=== PATIENT | male | born 1980 | race Caucasian/White ===

== ENCOUNTER 2019-06-21 14:10 | Outpatient (CLI) | payer BC ==
--- NOTE | 2019-06-21 14:41 | RAD ---
2 views lumbar spine: 06/21/2019 COMPARISON: 01/09/2015 HISTORY: Low back pain FINDINGS: Lateral exam demonstrates normal vertebral body height and alignment. There is questionable minimal dextroscoliosis centered at the thoracolumbar junction. The lumbar pedicles are intact on frontal imaging. No acute osseous abnormality. IMPRESSION: No acute osseous abnormality.
== END 2019-06-21 14:11 | disposition home or self-care (01) ==
LOC: TBSIIMAG 14:10
PROVIDERS: ATTEND Neurological Surgery
DX: M54.5 Low back pain (principal)
CPT/HCPCS: 72100

== ENCOUNTER 2019-07-29 14:03 | Outpatient (CLI) | payer BC ==
[2019-07-29 15:36] LABS: Prothrombin Time 12.8 SEC (12.0-14.7)
[2019-07-29 15:37] LABS: PTT 26.9 SEC (22.9-36.1)
[2019-07-29 15:54] LABS: Anion Gap 17 mmol/L (10-20); BUN (Urea Nitrogen) 8 mg/dL (8.9-20.6); Calc. Creatinine Clearance 0 mL/min (70-130); Carbon Dioxide 27 mmol/L (22-29); Chloride 98 mmol/L (98-107); Estimated GFR-MDRD Greater than 90; Glucose 116 mg/dL (70-105); Potassium 3.2 mmol/L (3.5-5.1); Sodium 139 mmol/L (136-145)
[2019-07-29 15:55] LABS: Hemoglobin 16.2 g/dL (14.0-18.0); Mean Corpuscular Hemoglobin 31.3 pg (27.0-31.0); Mean Corpuscular Volume 87.1 fL (78.0-98.0); Mean Platelet Volume 8.9 fL (7.4-10.4); Platelet Count 215 thou/uL (130-400); Red Blood Cell (RBC) Count 5.16 mill/uL (4.70-6.10)
== END 2019-07-29 14:04 | disposition home or self-care (01) ==
LOC: LABBT 14:03
PROVIDERS: ATTEND Neurological Surgery
DX: Z01.812 Encounter for preprocedural laboratory examination (principal); M51.26 Other intervertebral disc displacement, lumbar region
CPT/HCPCS: 80048; 85027; 85610; 85730

== ENCOUNTER 2019-08-02 05:45 | Day surgery (SDC) | payer BC ==
--- NOTE | 2019-07-29 14:10 | HP ---
HISTORY OF PRESENT ILLNESS: This is a 39-year-old male, who reports to our office for evaluation of low back and left leg pain. The patient reports that he has had pain for years, however things have gotten significantly worse since March. The patient describes pain in the low back down to the left gluteal, posterior thigh, changes in sensation in the anterior left leg. His foot amaya and tingles. The patient states that both feet are numb. He has been using a cane for assistance for the last month. He is unable to stand for more than 5 minutes and he is unable to lie flat and he is very uncomfortable in almost any position. The patient has gotten injections with Dr. Samson and these have helped in the past, but no longer. He has been in physical therapy and takes pain medications, gabapentin and muscle relaxers. Often has some difficulty using his hands. Decreased seems worse lately, they hurt and has difficulty using buttons. REVIEW OF SYSTEMS: A 10-point review of systems is completed and is negative other than stated in the above HPI. PAST MEDICAL HISTORY: Alcohol and drug use, hyperlipidemia, chronic pain, diabetes, hypertension. PAST SURGICAL HISTORY: The patient denies surgical history. FAMILY HISTORY: Father is , diagnosed with hypertension and cancer. Mother is alive with diabetes and hypertension. SOCIAL HISTORY: The patient is a former smoker, states that he uses alcohol and drugs, he is sexually active. MEDICATIONS: 1. Gabapentin. 2. Hydrochlorothiazide. 3. Percocet. 4. Metformin. 5. Tizanidine. ALLERGIES: MORPHINE. PHYSICAL EXAMINATION: CONSTITUTIONAL: The patient is alert and oriented x3. Appears nontoxic. RESPIRATIONS: Normal work of breathing on room air. NECK: Soft and supple. No masses are noted. Range of motion is intact and nonpainful. NEUROLOGIC: Awake, alert, oriented x3. Memory, attention, fund of knowledge are normal. Cranial nerves grossly intact. Upper extremities 5/5 strength in deltoids, biceps, triceps, wrist extension, finger extension, 4/5 in finger intrinsics. Decreased sensation in right pinky finger. Reflexes symmetric. Lower extremities 5/5 bilateral strength in hip flexion, knee flexion, knee extension, plantar flexion. 4-/5 in dorsiflexion, EHL, left toe flexion. S1 left radiculopathy. Positive single leg raise. Left hip rotation normal bilaterally. Tender to palpate the lumbar spine, left greater than right SI joint tenderness. Deep tendon reflexes 2+ patellar bilaterally, 2+ Achilles bilaterally. Negative Babinski. No clonus. SENSORY: Decreased sensation in lateral lower leg and top of both feet. Gait and station, sit to stand slow, leans to the right when sitting. Ambulates with cane. IMAGING: MRI cervical spine. Some right-sided foraminal stenosis, C3-C4, C4-C5, herniated disk, T1 left. Lumbar MRI disk at L4-5, L5-S1, etc. ASSESSMENT AND PLAN: Dr. Mota has offered surgery, laminectomy at L4-L5 with a left-sided microdiskectomy. The patient states that he understands the risks of surgery and is willing to proceed. Job ID: [id number]
[2019-07-29 14:42] VITALS: BMI 33.5
[2019-08-02] MEDS ORDERED: Fentanyl 100 MCG/2 ML VIAL ONE ×3 (05:54→10:18)
[2019-08-02] MEDS ORDERED: Midazolam HCl 2 mg/2 ml Vial ONE (06:00)
[2019-08-02] MEDS ORDERED: Bupivacaine HCl 0.5%/Epinephrine 1:200,000/PF 30 ml Vial ONE (06:11)
[2019-08-02] MEDS ORDERED: Thrombin 5000 UNITS/5 ML VIAL ONE (06:12)
[2019-08-02] MEDS ORDERED: Sodium Chloride 0.9% 20 ML ONE (06:12)
[2019-08-02] MEDS ORDERED: Famotidine/PF 20 mg/2ml Vial ONE (06:33)
[2019-08-02] MEDS ORDERED: Scopolamine 1.5 mg/72 hour Patch ONE (06:34)
[2019-08-02] MEDS ORDERED: Ondansetron PF 4 MG/2 ML Vial ONE ×2 (06:34→12:49)
--- NOTE | 2019-08-02 11:21 | OP ---
DATE OF PROCEDURE: 08/02/2019 [facility] CHIEF: Imani Guevara PA-C PREOPERATIVE INDICATION: Treat pain and prevent neurological deterioration. PREOPERATIVE DIAGNOSES: Lumbar intervertebral disk herniation at L4-L5 and L5-S1 with left-sided L5 and S1 radiculopathies as well as spinal stenosis with neurogenic claudication. POSTOPERATIVE DIAGNOSES: Lumbar intervertebral disk herniation at L4-L5 and L5-S1 with left-sided L5 and S1 radiculopathies as well as spinal stenosis with neurogenic claudication. PROCEDURES PERFORMED: Decompressive laminectomy, medial facetectomy, foraminotomy, L4-L5, L5-S1, microdiskectomy in left L4-5, left L5-S1. PREMEDICATION: Ancef 2 g IV. DRAIN NUMBER: Zero. DRAIN TYPE: None. DESCRIPTION OF PROCEDURE: The patient was brought to the operating room. General endotracheal anesthesia was induced. The patient was positioned prone on the operating table with the chest and hips supported by gel-filled chest rolls. A lateral fluoro radiograph was used to plan our incision. The lumbar skin was sterilely prepped and draped. We opened with a 10 blade knife and controlled bleeding with bipolar and monopolar cautery. We used monopolar cautery to dissect through subcutaneous tissues to the thoracodorsal fascia. We incised the fascia in the midline and reflected the paraspinal muscles off the spinous process and lamina of L4, L5, and S1. A lateral fluoro radiograph confirmed the levels upon which we were operating. We then removed the spinous processes of L4, L5 and the superior portion of the sacrum and using Kerrison rongeurs to fashion the laminectomy. We used a high-speed drill to thin the superior portion of the S1 lamina. We performed medial facetectomies at L4-L5 and L5-S1 to decompress the lateral recesses. There was significant tightness on the left lateral recess at L4-L5 and L5-S1. The operating microscope was brought into the field. Under microscopic magnification and using microsurgical techniques, we continued our medial facetectomy at L4-L5 and L5-S1 on the left side. Eventually, we identified the L5 and S1 nerve roots and we performed foraminotomies at the exit points. Most of these roots were stretched over intervertebral disk protrusions. These disks were densely calcified. They must have herniated out years ago as the density was similar to that of bone around it. We gently retracted the S1 nerve root medially as best we could and we drilled out the lateral aspect of the intervertebral disk protrusion. Indeed, this was so densely calcified and had same strength and consistency of bone. A trough we created was adequate to decompress and release stretch on the S1 nerve root. A ball probe could pass through the lateral recess and out the foramina without impingement. We turned our attention to L4-L5. Here, large intervertebral disk protrusion was causing stenosis originally and stretched the S1 nerve root especially on the left side. There was some disk material in the axilla of the nerve root and a copious amount over the shoulder. This material in the axilla was removed by gently using a curette to push it away eventually from the nerve and then removed it with pituitary rongeurs. Over the shoulder of the nerve, we retracted the nerve medially and using curettes, we reduced the amount of protruding calcified disk. We drilled some of the disk away and then used pituitary rongeurs to remove some soft disks beneath it. This process was repeated numerous times until we felt the lateral aspect of the dura was no longer stretched. There was certainly no compression in the middle of the canal and we ensured that the right-sided nerve roots were decompressed as well. We irrigated copiously with bacitracin irrigation. We controlled bleeding with gentle bipolar cautery. We infused local anesthetic in the paraspinal muscles. We closed the wound in anatomical layers and we applied a sterile dressing. This was a clean case, no contamination. Job ID: [id number]
[2019-08-02] MEDS ORDERED: Rocuronium Bromide 10 MG/ML (10ML VIAL) ONE (12:49)
[2019-08-02] MEDS ORDERED: PROPOFOL 200 MG/20 ML VIAL ONE (12:49)
[2019-08-02] MEDS ORDERED: Lidocaine 1% PF 5 ML VIAL ONE (12:49)
[2019-08-02] MEDS ORDERED: Ketorolac Tromethamine 30 MG/ML VIAL ONE (12:49)
[2019-08-02] MEDS ORDERED: Succinylcholine Chloride 20 MG/ML 10 ml SYRINGE FS ONE (12:49)
[2019-08-02] MEDS ORDERED: Labetalol HCl 100 MG/20 ML VIAL ONE (12:49)
== END 2019-08-02 14:25 | disposition home or self-care (01) ==
LOC: SDC 05:45
PROVIDERS: ATTEND Neurological Surgery
PROC: 0SB40ZZ Excision of Lumbosacral Disc, Open Approach (ICD-10-PCS; principal; 2019-08-02)
PROC: 01NR0ZZ Release Sacral Nerve, Open Approach (ICD-10-PCS; principal; 2019-08-02)
PROC: 01NB0ZZ Release Lumbar Nerve, Open Approach (ICD-10-PCS; principal; 2019-08-02)
PROC: 0SB20ZZ Excision of Lumbar Vertebral Disc, Open Approach (ICD-10-PCS; principal; 2019-08-02)
DX: M51.26 Other intervertebral disc displacement, lumbar region (principal); M48.062 Spinal stenosis, lumbar region with neurogenic claudication; M51.17 Intervertebral disc disorders with radiculopathy, lumbosacral region; M48.07 Spinal stenosis, lumbosacral region; I10 Essential (primary) hypertension; E78.5 Hyperlipidemia, unspecified; E11.9 Type 2 diabetes mellitus without complications; G89.29 Other chronic pain; Z87.891 Personal history of nicotine dependence; Z79.84 Long term (current) use of oral hypoglycemic drugs; Z79.899 Other long term (current) drug therapy; Z88.5 Allergy status to narcotic agent
CPT/HCPCS: 36416; 76000; J0131; J0670; J0690; J1885; J2001; J2250; J2405; J2704; J3010; J3370; J3490; S0028

== ENCOUNTER 2025-04-25 19:57 | Inpatient (IN) | payer OTHER ==
[2025-04-25 21:54] VITALS: BMI 14.9
[2025-04-25] MEDS ORDERED: Acetaminophen 325 MG TAB PO PRN (22:37)
[2025-04-25] MEDS ORDERED: Calcium Carbonate 500 MG ChewTAB PO PRN (22:37)
[2025-04-25] MEDS ORDERED: Electrolyte Replacement Protocol 1 EACH FS SCH (22:45)
[2025-04-25] MEDS ORDERED: Glucagon 1 MG/ML KIT IM PRN (22:47)
[2025-04-25] MEDS ORDERED: Dextrose 50% Abboject 50 ML SYRINGE SLOW IVP PRN (22:47)
[2025-04-26 06:04] LABS: #Basophils 0.07 10x3/uL (0.0-0.2); #Eosinophils 0.05 10x3/uL (0.0-0.7); #Monocytes 1.46 10x3/uL (0.11-0.59); #Neutrophils 10.39 10x3/uL (1.40-6.50); %Basophils 0.5 % (0.0-1.0); %Eosinophils 0.4 % (0.0-10.0); %Lymphocytes 8.4 % (21.0-51.0); %Monocytes 11.1 % (0.0-10.0); %Neutrophils 78.8 % (42.0-75.0); Hematocrit 39.3 % (42.0-52.0); Hemoglobin 12.8 g/dL (14.0-18.0); Mean Corpuscular Hemoglobin 28.4 pg (27.0-31.0); Mean Corpuscular Volume 87.1 fL (78.0-98.0); Platelet Count 208 10x3/uL (130-400); Red Blood Cell (RBC) Count 4.51 mill/uL (4.70-6.10); White Blood Cell (WBC) Count 13.17 10x3/uL (4.8-10.8)
[2025-04-26 07:04] LABS: ALT (SGPT) 26 U/L (Less than 45); AST (SGOT) 123 U/L (11-34); Albumin 2.7 g/dL (3.1-4.5); Alkaline Phosphatase 475 U/L (40-110); Anion Gap 12 mmol/L (10-20); BUN (Urea Nitrogen) 6 mg/dL (8.9-20.6); Bilirubin, Total 1.4 mg/dL (0.3-1.2); Calc. Creatinine Clearance 105 mL/min (70-130); Calcium 8.6 mg/dL (7.8-10.44); Carbon Dioxide 26 mmol/L (22-29); Chloride 100 mmol/L (98-107); Globulin 3.7 g/dL (2.4-3.5); Glucose 225 mg/dL (70-105); Potassium 4.0 mmol/L (3.5-5.1); Sodium 134 mmol/L (136-145)
[2025-04-26] MEDS: metFORMIN 500 MG TAB PO SCH (09:55)
[2025-04-26] MEDS: Amoxicillin/Potassium Clav 875 MG TAB PO SCH ×2 (09:55→20:19)
[2025-04-26] MEDS: Megestrol Acetate 800 MG/20 ML UDCUP PO SCH (09:55)
[2025-04-26] MEDS: Cholecalciferol 1,000 UNITS (25 MCG) TAB PO SCH (20:19)
[2025-04-26] MEDS: Senokot S 8.6-50 MG TAB PO SCH (20:19)
[2025-04-26] MEDS: Folic Acid 1 MG TAB PO SCH (20:19)
[2025-04-26] MEDS: Cyanocobalamin (Vitamin B-12) 1,000 MCG TAB PO SCH (20:20)
[2025-04-26] MEDS: Cipro 250 MG TAB PO SCH (20:20)
[2025-04-26] MEDS: Multivit, Therapeutic 1 TAB PO SCH (20:20)
[2025-04-27 06:41] LABS: #Basophils 0.07 10x3/uL (0.0-0.2); #Eosinophils 0.12 10x3/uL (0.0-0.7); #Monocytes 1.65 10x3/uL (0.11-0.59); #Neutrophils 14.22 10x3/uL (1.40-6.50); %Basophils 0.4 % (0.0-1.0); %Eosinophils 0.7 % (0.0-10.0); %Lymphocytes 9.5 % (21.0-51.0); %Monocytes 9.2 % (0.0-10.0); %Neutrophils 79.3 % (42.0-75.0); Hematocrit 38.4 % (42.0-52.0); Hemoglobin 12.6 g/dL (14.0-18.0); Mean Corpuscular Hemoglobin 28.2 pg (27.0-31.0); Mean Corpuscular Volume 85.9 fL (78.0-98.0); Platelet Count 192 10x3/uL (130-400); Red Blood Cell (RBC) Count 4.47 mill/uL (4.70-6.10); White Blood Cell (WBC) Count 17.93 10x3/uL (4.8-10.8)
[2025-04-27 06:57] LABS: Anion Gap 16 mmol/L (10-20); BUN (Urea Nitrogen) 9 mg/dL (8.9-20.6); Calc. Creatinine Clearance 123 mL/min (70-130); Calcium 9.0 mg/dL (7.8-10.44); Carbon Dioxide 24 mmol/L (22-29); Chloride 99 mmol/L (98-107); Glucose 119 mg/dL (70-105); Magnesium 1.5 mg/dL (1.6-2.6); Potassium 3.8 mmol/L (3.5-5.1); Sodium 135 mmol/L (136-145)
[2025-04-27] MEDS: Magnesium 2 GM/50 ML(in water) 2 GM in Premix 1 BAG IVPB SCH (08:30)
[2025-04-27] MEDS: pyridOXINE 50 MG (B6) TAB PO SCH (08:30)
[2025-04-27] MEDS: Insulin Glargine 30 UNITS/0.3 ML VIAL SC SCH (08:30)
[2025-04-27] MEDS: Potassium Phosphate 30 MMOL in Sodium Chloride 0.9% 250 ML 250 ML IVPB SCH (10:05)
[2025-04-27] MEDS: HYDROcodone/Acetaminophen 5/325 mg Tablet PO PRN (14:19)
[2025-04-27 16:44] VITALS: BMI 14.9
[2025-04-28 05:27] LABS: #Basophils 0.05 10x3/uL (0.0-0.2); #Eosinophils 0.09 10x3/uL (0.0-0.7); #Monocytes 1.33 10x3/uL (0.11-0.59); #Neutrophils 11.18 10x3/uL (1.40-6.50); %Basophils 0.4 % (0.0-1.0); %Eosinophils 0.6 % (0.0-10.0); %Lymphocytes 10.4 % (21.0-51.0); %Monocytes 9.4 % (0.0-10.0); %Neutrophils 78.6 % (42.0-75.0); Hematocrit 35.0 % (42.0-52.0); Hemoglobin 11.4 g/dL (14.0-18.0); Mean Corpuscular Hemoglobin 28.4 pg (27.0-31.0); Mean Corpuscular Volume 87.3 fL (78.0-98.0); Platelet Count 234 10x3/uL (130-400); Red Blood Cell (RBC) Count 4.01 mill/uL (4.70-6.10); White Blood Cell (WBC) Count 14.20 10x3/uL (4.8-10.8)
[2025-04-28 05:50] LABS: Anion Gap 12 mmol/L (10-20); BUN (Urea Nitrogen) 12 mg/dL (8.9-20.6); Calc. Creatinine Clearance 112 mL/min (70-130); Calcium 8.3 mg/dL (7.8-10.44); Carbon Dioxide 27 mmol/L (22-29); Chloride 100 mmol/L (98-107); Glucose 146 mg/dL (70-105); Magnesium 1.8 mg/dL (1.6-2.6); Potassium 3.8 mmol/L (3.5-5.1); Sodium 135 mmol/L (136-145)
[2025-04-28] MEDS: Magnesium 2 GM/50 ML(in water) 2 GM in Premix 1 BAG IVPB SCH (08:37)
[2025-04-28] MEDS: OLANZapine 5 MG TAB PO SCH (08:38)
[2025-04-28] MEDS: Mirtazapine 15 MG TAB PO SCH (20:23)
[2025-04-30] MEDS: Ondansetron PF 4 MG/2 ML Vial IVP PRN (10:12)
[2025-04-30] MEDS: Melatonin 3 MG TAB PO PRN (21:24)
[2025-05-01 06:03] LABS: #Basophils 0.08 10x3/uL (0.0-0.2); #Eosinophils 0.11 10x3/uL (0.0-0.7); #Monocytes 2.30 10x3/uL (0.11-0.59); #Neutrophils 12.99 10x3/uL (1.40-6.50); %Basophils 0.5 % (0.0-1.0); %Eosinophils 0.6 % (0.0-10.0); %Lymphocytes 10.3 % (21.0-51.0); %Monocytes 13.2 % (0.0-10.0); %Neutrophils 74.9 % (42.0-75.0); Hematocrit 37.5 % (42.0-52.0); Hemoglobin 12.1 g/dL (14.0-18.0); Mean Corpuscular Hemoglobin 28.0 pg (27.0-31.0); Mean Corpuscular Volume 86.8 fL (78.0-98.0); Platelet Count 243 10x3/uL (130-400); Red Blood Cell (RBC) Count 4.32 mill/uL (4.70-6.10); White Blood Cell (WBC) Count 17.36 10x3/uL (4.8-10.8)
[2025-05-01 06:17] LABS: Anion Gap 14 mmol/L (10-20); BUN (Urea Nitrogen) 14 mg/dL (8.9-20.6); Calc. Creatinine Clearance 131 mL/min (70-130); Calcium 8.9 mg/dL (7.8-10.44); Carbon Dioxide 28 mmol/L (22-29); Chloride 99 mmol/L (98-107); Glucose 55 mg/dL (70-105); Potassium 3.8 mmol/L (3.5-5.1); Sodium 137 mmol/L (136-145)
[2025-05-02] MEDS: Ketorolac Tromethamine 30 MG (1 mL) VIAL IVP SCH (05:09)
[2025-05-02 05:52] LABS: #Basophils 0.07 10x3/uL (0.0-0.2); #Eosinophils 0.21 10x3/uL (0.0-0.7); #Monocytes 2.38 10x3/uL (0.11-0.59); #Neutrophils 10.46 10x3/uL (1.40-6.50); %Basophils 0.5 % (0.0-1.0); %Eosinophils 1.4 % (0.0-10.0); %Lymphocytes 11.3 % (21.0-51.0); %Monocytes 15.9 % (0.0-10.0); %Neutrophils 69.9 % (42.0-75.0); Hematocrit 39.5 % (42.0-52.0); Hemoglobin 12.9 g/dL (14.0-18.0); Mean Corpuscular Hemoglobin 27.6 pg (27.0-31.0); Mean Corpuscular Volume 84.6 fL (78.0-98.0); Platelet Count 285 10x3/uL (130-400); Red Blood Cell (RBC) Count 4.67 mill/uL (4.70-6.10); White Blood Cell (WBC) Count 14.96 10x3/uL (4.8-10.8)
[2025-05-02 06:05] LABS: Anion Gap 17 mmol/L (10-20); BUN (Urea Nitrogen) 12 mg/dL (8.9-20.6); Calc. Creatinine Clearance 123 mL/min (70-130); Calcium 9.0 mg/dL (7.8-10.44); Carbon Dioxide 26 mmol/L (22-29); Chloride 98 mmol/L (98-107); Glucose 92 mg/dL (70-105); Potassium 4.0 mmol/L (3.5-5.1); Sodium 137 mmol/L (136-145)
[2025-05-02] MEDS: Senokot S 8.6-50 MG TAB PO SCH (09:52)
[2025-05-02] MEDS: HYDROcodone/Acetaminophen 5/325 mg Tablet PO SCH (19:58)
[2025-05-03] MEDS ORDERED: Iopamidol-370 76% 500 ML MDV (1 ML CHARGE) ONE (10:07)
[2025-05-03] MEDS: Bisacodyl 10 MG SUPP PR SCH (12:03)
[2025-05-03] MEDS: Senokot S 8.6-50 MG TAB PO SCH (21:19)
[2025-05-04] MEDS: LevoFLOXacin 750 mg/D5W 750 MG in Premix 1 BAG IVPB SCH (11:24)
[2025-05-05 08:47] LABS: Hematocrit 35.1 % (42.0-52.0); Hemoglobin 11.1 g/dL (14.0-18.0); Mean Corpuscular Hemoglobin 27.8 pg (27.0-31.0); Mean Corpuscular Volume 87.8 fL (78.0-98.0); Platelet Count 442 10x3/uL (130-400); Red Blood Cell (RBC) Count 4.00 mill/uL (4.70-6.10); White Blood Cell (WBC) Count 16.34 10x3/uL (4.8-10.8)
[2025-05-05 09:01] LABS: Anion Gap 13 mmol/L (10-20); BUN (Urea Nitrogen) 12 mg/dL (8.9-20.6); Calc. Creatinine Clearance 131 mL/min (70-130); Calcium 8.3 mg/dL (7.8-10.44); Carbon Dioxide 31 mmol/L (22-29); Chloride 99 mmol/L (98-107); Glucose 86 mg/dL (70-105); Potassium 3.5 mmol/L (3.5-5.1); Sodium 139 mmol/L (136-145)
[2025-05-05 10:16] LABS: Giant Platelets 1.9 % (0-5); Platelet Adequacy Comment Platelets Normal; Polychromasia SLIGHT = 2-3 cells HPF (0-2); Smudge Cells 1.0 %; Target Cells MODERATE= 6-15 cells HPF (0-1)
[2025-05-06 05:44] LABS: Anion Gap 15 mmol/L (10-20); BUN (Urea Nitrogen) 12 mg/dL (8.9-20.6); Calc. Creatinine Clearance 133 mL/min (70-130); Calcium 8.4 mg/dL (7.8-10.44); Carbon Dioxide 26 mmol/L (22-29); Chloride 99 mmol/L (98-107); Glucose 234 mg/dL (70-105); Potassium 4.2 mmol/L (3.5-5.1); Sodium 136 mmol/L (136-145)
[2025-05-06 06:01] LABS: #Basophils 0.15 10x3/uL (0.0-0.2); #Eosinophils 0.28 10x3/uL (0.0-0.7); #Monocytes 1.97 10x3/uL (0.11-0.59); #Neutrophils 14.83 10x3/uL (1.40-6.50); %Basophils 0.7 % (0.0-1.0); %Eosinophils 1.4 % (0.0-10.0); %Lymphocytes 11.1 % (21.0-51.0); %Monocytes 9.7 % (0.0-10.0); %Neutrophils 72.7 % (42.0-75.0); Hematocrit 36.9 % (42.0-52.0); Hemoglobin 11.9 g/dL (14.0-18.0); Mean Corpuscular Hemoglobin 27.5 pg (27.0-31.0); Mean Corpuscular Volume 85.4 fL (78.0-98.0); Platelet Count 405 10x3/uL (130-400); Red Blood Cell (RBC) Count 4.32 mill/uL (4.70-6.10); White Blood Cell (WBC) Count 20.39 10x3/uL (4.8-10.8)
[2025-05-06 07:56] VITALS: BP 107/65; TEMP 97.5
[2025-05-06] MEDS: Mag-Al Plus 1200/1200/120 MG (30 mL) UDCUP PO PRN (10:02)
== END 2025-05-06 15:08 | disposition home or self-care (01) | DRG 435 ==
LOC: T4-B 21:13
PROVIDERS: ADMIT Student in an Organized Health Care Education/Training Program; ATTEND Internal Medicine
DX: C25.9 Malignant neoplasm of pancreas, unspecified (principal); E43 Unspecified severe protein-calorie malnutrition; A52.16 Charcot's arthropathy (tabetic); R44.0 Auditory hallucinations; Z68.1 Body mass index [BMI] 19.9 or less, adult; C78.7 Secondary malignant neoplasm of liver and intrahepatic bile duct; E88.A Wasting disease (syndrome) due to underlying condition; Z51.5 Encounter for palliative care; E11.9 Type 2 diabetes mellitus without complications; F15.10 Other stimulant abuse, uncomplicated; E11.621 Type 2 diabetes mellitus with foot ulcer; L97.509 Non-pressure chronic ulcer of other part of unspecified foot with unspecified severity; E87.8 Other disorders of electrolyte and fluid balance, not elsewhere classified; D3A.8 Other benign neuroendocrine tumors; F12.10 Cannabis abuse, uncomplicated; D72.829 Elevated white blood cell count, unspecified; K59.00 Constipation, unspecified; Z79.899 Other long term (current) drug therapy
CPT/HCPCS: 36415; 36416; 74177; 80048; 80053; 83735; 84100; 85025; 97139; J1815; J1885; J1956; J2405; J3475; J7050; J7120; Q0162; Q9967

== ENCOUNTER 2025-06-16 12:59 | Outpatient (CLI) | payer MEDICAID, SELFPAY ==
[2025-06-16] MEDS ORDERED: Iopamidol 370 76% 100 ML VIAL ONE (15:31)
== END 2025-06-16 13:00 | disposition home or self-care (01) ==
LOC: CT 12:59
PROVIDERS: ATTEND Internal Medicine
DX: C25.3 Malignant neoplasm of pancreatic duct (principal); C78.7 Secondary malignant neoplasm of liver and intrahepatic bile duct; R91.8 Other nonspecific abnormal finding of lung field; K86.89 Other specified diseases of pancreas
CPT/HCPCS: 71260; Q9967

== ENCOUNTER 2025-07-06 03:03 | Inpatient (IN) | payer MEDICAID ==
[2025-07-06 05:03] VITALS: BMI 14.8
[2025-07-06] MEDS ORDERED: Ondansetron PF 4 MG/2 ML Vial IVP PRN (06:16)
[2025-07-06] MEDS ORDERED: Acetaminophen 325 MG TAB PO PRN (06:16)
[2025-07-06] MEDS ORDERED: Dextrose 50% Abboject 50 ML SYRINGE SLOW IVP PRN (06:18)
[2025-07-06] MEDS ORDERED: Glucagon 1 MG/ML KIT IM PRN (06:18)
[2025-07-06] MEDS: Albumin 25% 25 GM (100 mL) BOT IVPB SCH (06:31)
[2025-07-06 07:34] LABS: ALT (SGPT) 31 U/L (Less than 45); AST (SGOT) 191 U/L (11-34); Albumin 2.6 g/dL (3.1-4.5); Alkaline Phosphatase 976 U/L (40-110); Anion Gap 10 mmol/L (10-20); BUN (Urea Nitrogen) 5 mg/dL (8.9-20.6); Bilirubin, Total 0.5 mg/dL (0.3-1.2); Calc. Creatinine Clearance 173 mL/min (70-130); Calcium 8.2 mg/dL (7.8-10.44); Carbon Dioxide 29 mmol/L (22-29); Chloride 102 mmol/L (98-107); Globulin 3.0 g/dL (2.4-3.5); Glucose 65 mg/dL (70-105); Magnesium 1.6 mg/dL (1.6-2.6); Potassium 3.2 mmol/L (3.5-5.1); Sodium 138 mmol/L (136-145)
[2025-07-06 08:20] LABS: Anion Gap 10 mmol/L (10-20); BUN (Urea Nitrogen) 5 mg/dL (8.9-20.6); Calc. Creatinine Clearance 190 mL/min (70-130); Calcium 8.4 mg/dL (7.8-10.44); Carbon Dioxide 30 mmol/L (22-29); Chloride 102 mmol/L (98-107); Glucose 64 mg/dL (70-105); Potassium 3.1 mmol/L (3.5-5.1); Sodium 139 mmol/L (136-145)
[2025-07-06 09:17] LABS: Hematocrit 30.1 % (42.0-52.0); Hemoglobin 9.3 g/dL (14.0-18.0); Mean Corpuscular Hemoglobin 28.8 pg (27.0-31.0); Mean Corpuscular Volume 93.2 fL (78.0-98.0); Platelet Count 172 10x3/uL (130-400); Red Blood Cell (RBC) Count 3.23 mill/uL (4.70-6.10); White Blood Cell (WBC) Count 34.68 10x3/uL (4.8-10.8)
[2025-07-06 09:29] LABS: Cocaine Metabolite Screen Negative (Negative); THC/Cannabinoid Screen Negative (Negative); Tricyclic Screen Negative (Negative)
[2025-07-06 09:50] LABS: Anisocytosis SLIGHT = 6-15 cells HPF (0-5); Platelet Adequacy Comment Platelets Normal; Polychromasia SLIGHT = 2-3 cells HPF (0-2); Smudge Cells 1.0 %; Toxic Granulation SLIGHT
[2025-07-06] MEDS ORDERED: Iopamidol 370 76% 100 ML VIAL ONE (13:30)
[2025-07-07 04:12] LABS: ALT (SGPT) 28 U/L (Less than 45); AST (SGOT) 126 U/L (11-34); Albumin 2.9 g/dL (3.1-4.5); Alkaline Phosphatase 965 U/L (40-110); Anion Gap 12 mmol/L (10-20); BUN (Urea Nitrogen) 4 mg/dL (8.9-20.6); Bilirubin, Total 0.9 mg/dL (0.3-1.2); Calc. Creatinine Clearance 184 mL/min (70-130); Calcium 8.4 mg/dL (7.8-10.44); Carbon Dioxide 29 mmol/L (22-29); Chloride 99 mmol/L (98-107); Globulin 2.9 g/dL (2.4-3.5); Glucose 49 mg/dL (70-105); Magnesium 1.6 mg/dL (1.6-2.6); Potassium 3.6 mmol/L (3.5-5.1); Sodium 136 mmol/L (136-145)
[2025-07-07 04:29] LABS: Hematocrit 29.5 % (42.0-52.0); Hemoglobin 9.5 g/dL (14.0-18.0); Mean Corpuscular Hemoglobin 29.1 pg (27.0-31.0); Mean Corpuscular Volume 90.2 fL (78.0-98.0); Platelet Count 171 10x3/uL (130-400); Red Blood Cell (RBC) Count 3.27 mill/uL (4.70-6.10); White Blood Cell (WBC) Count 33.62 10x3/uL (4.8-10.8)
[2025-07-07 05:07] LABS: Platelet Adequacy Comment Platelets Normal; RBC Morphology Within Normal Limits; Smudge Cells 2.0 %
[2025-07-07 11:48] VITALS: BMI 14.8
[2025-07-07] MEDS: Magnesium 2 GM/50 ML(in water) 2 GM in Premix 1 BAG IVPB SCH (11:59)
[2025-07-07] MEDS ORDERED: Dicyclomine 10 MG CAP PO PRN (16:07)
[2025-07-07] MEDS: Loperamide HCl 1 MG/7.5 ML UDCUP PO PRN (21:49)
[2025-07-09] MEDS ORDERED: FLU (Fluarix Triv) 25-26 (6MOS UP)/PF 45 MCG/0.5 ML Syringe IM ONE (09:00)
[2025-07-09] MEDS ORDERED: PNEUMOC 20-VAL CONJ-DIP CRM/PF 0.5 ML SYRINGE IM ONE (09:00)
[2025-07-10] MEDS: Diphenoxylate HCl/Atropine Tablet PO SCH (10:01)
[2025-07-10] MEDS: Diphenoxylate HCl/Atropine Tablet PO PRN (17:06)
[2025-07-11 02:00] LABS: Campy jejuni + coli by PCR Negative (Negative); STEC Shiga Toxin 1+2 Negative (Negative); Salmonella spp. by PCR Negative (Negative); Shigella spp + EIEC by PCR Negative (Negative)
[2025-07-11] MEDS ORDERED: Diphenoxylate HCl/Atropine Tablet PO PRN (08:36)
[2025-07-11] MEDS: Diphenoxylate HCl/Atropine Tablet PO SCH (14:18)
[2025-07-12 13:26] VITALS: BP 103/61; TEMP 97.2
== END 2025-07-12 15:24 | disposition hospice, home (50) | DRG 313 ==
LOC: PCU 04:47 → OBSVTOIN 07-07 13:06
PROVIDERS: ADMIT Internal Medicine; ATTEND Internal Medicine
PROC: 3E0234Z Introduction of Serum, Toxoid and Vaccine into Muscle, Percutaneous Approach (ICD-10-PCS; principal; 2025-07-07)
DX: R07.89 Other chest pain (principal); E43 Unspecified severe protein-calorie malnutrition; C7A.8 Other malignant neuroendocrine tumors; R64 Cachexia; Z68.1 Body mass index [BMI] 19.9 or less, adult; C78.7 Secondary malignant neoplasm of liver and intrahepatic bile duct; C25.3 Malignant neoplasm of pancreatic duct; Z51.5 Encounter for palliative care; Z66 Do not resuscitate; I10 Essential (primary) hypertension; E78.5 Hyperlipidemia, unspecified; E11.9 Type 2 diabetes mellitus without complications; D72.829 Elevated white blood cell count, unspecified; T45.8X5A Adverse effect of other primarily systemic and hematological agents, initial encounter; D63.8 Anemia in other chronic diseases classified elsewhere; R19.7 Diarrhea, unspecified; E87.6 Hypokalemia; Z98.890 Other specified postprocedural states; Z23 Encounter for immunization
CPT/HCPCS: 36415; 36416; 71260; 74177; 80053; 80306; 83735; 84484; 85025; 87324; 87449; 87505; 93306; 96365; 96375; G0378; J1815; J3475; J7030; J7120; P9047; Q9967

== ENCOUNTER 2025-07-20 15:55 | Inpatient (IN) | payer MEDICAID ==
[~2025-07-20 15:55] MED LIST: Iopamidol-370 76% 500 ML MDV (1 ML CHARGE) ONE
[2025-07-20 16:58] LABS: #Basophils 0.03 10x3/uL (0.0-0.2); #Eosinophils Less than 0.03 10x3/uL (0.0-0.7); #Monocytes 0.95 10x3/uL (0.11-0.59); #Neutrophils 8.59 10x3/uL (1.40-6.50); %Basophils 0.3 % (0.0-1.0); %Eosinophils 0.1 % (0.0-10.0); %Lymphocytes 7.8 % (21.0-51.0); %Monocytes 9.1 % (0.0-10.0); %Neutrophils 82.3 % (42.0-75.0); Hematocrit 41.4 % (42.0-52.0); Hemoglobin 13.4 g/dL (14.0-18.0); Mean Corpuscular Hemoglobin 29.4 pg (27.0-31.0); Mean Corpuscular Volume 90.8 fL (78.0-98.0); Platelet Count 346 10x3/uL (130-400); Red Blood Cell (RBC) Count 4.56 mill/uL (4.70-6.10); White Blood Cell (WBC) Count 10.43 10x3/uL (4.8-10.8)
[2025-07-20 17:10] LABS: Acetaminophen Less than 10 mcg/mL (Less than 10); Salicylate Less than 8.0 mg/dL (Less than 8.0)
[2025-07-20 17:16] LABS: Lipase 1038 U/L (8-78)
[2025-07-20 17:25] LABS: ALT (SGPT) 24 U/L (Less than 45); AST (SGOT) 61 U/L (11-34); Albumin 3.3 g/dL (3.1-4.5); Alkaline Phosphatase 1064 U/L (40-110); Anion Gap 12 mmol/L (10-20); BUN (Urea Nitrogen) Less than 4 mg/dL (8.9-20.6); Bilirubin, Total 0.7 mg/dL (0.3-1.2); CK (CPK) 65 U/L (30-200); Calc. Creatinine Clearance 0 mL/min (70-130); Calcium 8.4 mg/dL (7.8-10.44); Carbon Dioxide 27 mmol/L (22-29); Chloride 99 mmol/L (98-107); Globulin 3.5 g/dL (2.4-3.5); Glucose 126 mg/dL (70-105); Potassium 2.4 mmol/L (3.5-5.1); Sodium 136 mmol/L (136-145)
[2025-07-20 19:13] LABS: Cocaine Metabolite Screen Negative (Negative); THC/Cannabinoid Screen Negative (Negative); Tricyclic Screen Negative (Negative)
[2025-07-20 19:15] LABS: Bacteria/HPF None Seen HPF (None Seen); CAUTI Indications for Culture Alt mental st,lethar; Glucose, Urine (Dipstick) Normal (Negative); Leukocyte Negative Leu/uL (Negative); Protein, Urine (Dipstick) 20 mg/dL (Neg-Trace); RBC/HPF None Seen HPF (0-3); Specific Gravity, Urine 1.011 (1.002-1.036); WBC/HPF None Seen HPF (0-3)
[2025-07-20 19:24] LABS: Urine Culture Reflex No No
[2025-07-20] MEDS ORDERED: Ondansetron PF 4 MG/2 ML Vial IVP PRN (20:44)
[2025-07-20] MEDS: Dextrose 50% Abboject 50 ML SYRINGE SLOW IVP PRN (22:14)
[2025-07-20] MEDS: Potassium Chloride 20 MEQ in Premix 1 BAG IVPB SCH (22:17)
[2025-07-20] MEDS: D5 1/2 NS w/20 mEq KCL 1,000 ML IV SCH (22:18)
[2025-07-20] MEDS: Acetaminophen 325 MG TAB PO PRN (22:18)
[2025-07-21 06:14] LABS: #Basophils 0.07 10x3/uL (0.0-0.2); #Eosinophils 0.06 10x3/uL (0.0-0.7); #Monocytes 1.99 10x3/uL (0.11-0.59); #Neutrophils 8.02 10x3/uL (1.40-6.50); %Basophils 0.6 % (0.0-1.0); %Eosinophils 0.5 % (0.0-10.0); %Lymphocytes 18.6 % (21.0-51.0); %Monocytes 15.9 % (0.0-10.0); %Neutrophils 63.9 % (42.0-75.0); Hematocrit 36.5 % (42.0-52.0); Hemoglobin 11.2 g/dL (14.0-18.0); Mean Corpuscular Hemoglobin 28.8 pg (27.0-31.0); Mean Corpuscular Volume 93.8 fL (78.0-98.0); Platelet Count 343 10x3/uL (130-400); Red Blood Cell (RBC) Count 3.89 mill/uL (4.70-6.10); White Blood Cell (WBC) Count 12.53 10x3/uL (4.8-10.8)
[2025-07-21 06:39] LABS: Anion Gap 11 mmol/L (10-20); BUN (Urea Nitrogen) Less than 4 mg/dL (8.9-20.6); Calc. Creatinine Clearance 167 mL/min (70-130); Calcium 8.2 mg/dL (7.8-10.44); Carbon Dioxide 26 mmol/L (22-29); Chloride 99 mmol/L (98-107); Glucose 238 mg/dL (70-105); Magnesium 1.6 mg/dL (1.6-2.6); Potassium 3.2 mmol/L (3.5-5.1); Sodium 133 mmol/L (136-145)
[2025-07-21] MEDS: Enoxaparin 30 MG (0.3 mL) SYRINGE SC SCH (09:23)
[2025-07-21 14:36] VITALS: BMI 17.2
[2025-07-22] LABS: #Basophils 0.07 10x3/uL (0.0-0.2); #Eosinophils 0.14 10x3/uL (0.0-0.7); #Monocytes 1.73 10x3/uL (0.11-0.59); #Neutrophils 10.16 10x3/uL (1.40-6.50); %Basophils 0.5 % (0.0-1.0); %Eosinophils 1.0 % (0.0-10.0); %Lymphocytes 14.3 % (21.0-51.0); %Monocytes 12.2 % (0.0-10.0); %Neutrophils 71.4 % (42.0-75.0); Hematocrit 37.1 % (42.0-52.0); Hemoglobin 11.5 g/dL (14.0-18.0); Mean Corpuscular Hemoglobin 29.2 pg (27.0-31.0); Mean Corpuscular Volume 94.2 fL (78.0-98.0); Platelet Count 337 10x3/uL (130-400); Red Blood Cell (RBC) Count 3.94 mill/uL (4.70-6.10); White Blood Cell (WBC) Count 14.22 10x3/uL (4.8-10.8)
[2025-07-22] MEDS ORDERED: Electrolyte Replacement Protocol 1 EACH FS SCH (00:15)
[2025-07-22 00:42] LABS: ALT (SGPT) 19 U/L (Less than 45); AST (SGOT) 44 U/L (11-34); Albumin 3.0 g/dL (3.1-4.5); Alkaline Phosphatase 908 U/L (40-110); Anion Gap 14 mmol/L (10-20); BUN (Urea Nitrogen) Less than 4 mg/dL (8.9-20.6); Bilirubin, Total 0.7 mg/dL (0.3-1.2); Calc. Creatinine Clearance 167 mL/min (70-130); Calcium 8.8 mg/dL (7.8-10.44); Carbon Dioxide 28 mmol/L (22-29); Chloride 97 mmol/L (98-107); Globulin 3.1 g/dL (2.4-3.5); Glucose 165 mg/dL (70-105); Magnesium 1.4 mg/dL (1.6-2.6); Potassium 3.0 mmol/L (3.5-5.1); Sodium 136 mmol/L (136-145)
[2025-07-22] MEDS: Magnesium 2 GM/50 ML(in water) 2 GM in Premix 1 BAG IVPB SCH (01:55)
[2025-07-22] MEDS: Potassium Chloride 20 MEQ in Premix 1 BAG IVPB SCH ×2 (01:56→14:57)
[2025-07-22 03:36] LABS: #Basophils 0.07 10x3/uL (0.0-0.2); #Eosinophils 0.13 10x3/uL (0.0-0.7); #Monocytes 1.72 10x3/uL (0.11-0.59); #Neutrophils 10.19 10x3/uL (1.40-6.50); %Basophils 0.5 % (0.0-1.0); %Eosinophils 0.9 % (0.0-10.0); %Lymphocytes 14.5 % (21.0-51.0); %Monocytes 12.1 % (0.0-10.0); %Neutrophils 71.5 % (42.0-75.0); Hematocrit 38.5 % (42.0-52.0); Hemoglobin 12.1 g/dL (14.0-18.0); Mean Corpuscular Hemoglobin 29.4 pg (27.0-31.0); Mean Corpuscular Volume 93.7 fL (78.0-98.0); Platelet Count 301 10x3/uL (130-400); Red Blood Cell (RBC) Count 4.11 mill/uL (4.70-6.10); White Blood Cell (WBC) Count 14.24 10x3/uL (4.8-10.8)
[2025-07-22 03:55] LABS: Anion Gap 14 mmol/L (10-20); BUN (Urea Nitrogen) Less than 4 mg/dL (8.9-20.6); Calc. Creatinine Clearance 180 mL/min (70-130); Calcium 8.5 mg/dL (7.8-10.44); Carbon Dioxide 28 mmol/L (22-29); Chloride 98 mmol/L (98-107); Glucose 98 mg/dL (70-105); Potassium 3.2 mmol/L (3.5-5.1); Sodium 137 mmol/L (136-145)
[2025-07-22 13:12] LABS: Actual Bicarbonate (HCO3a) 31.0 mEq/L (22-28); Base Excess (BEa) 6.6 mEq/L (-2.0 to +3.0); CO2 Tension 43.8 mmHg (35.0-45.0); Calcium, Ionized (arterial) 1.14 mmol/L (1.12-1.30); Hematocrit-ABG 36 % (42.0-52.0); Hemoglobin (Hb) 12.2 g/dL (14.0-18.0); O2 Tension (PaO2), arterial 60.3 mmHg (80.0-100.0); Potassium - ABG Lab 3.03 mmol/L (3.70-5.30); pH, Arterial 7.468 (7.35-7.45)
[2025-07-22 13:14] LABS: Puncture Site Left Brachial artery
[2025-07-22] MEDS ORDERED: Dextrose 5% w/ 20 mEq KCl 1,000 ML IV SCH (14:00)
[2025-07-23 04:04] LABS: #Basophils 0.08 10x3/uL (0.0-0.2); #Eosinophils 0.12 10x3/uL (0.0-0.7); #Monocytes 1.97 10x3/uL (0.11-0.59); #Neutrophils 14.88 10x3/uL (1.40-6.50); %Basophils 0.4 % (0.0-1.0); %Eosinophils 0.6 % (0.0-10.0); %Lymphocytes 12.6 % (21.0-51.0); %Monocytes 10.0 % (0.0-10.0); %Neutrophils 75.7 % (42.0-75.0); Hematocrit 37.6 % (42.0-52.0); Hemoglobin 11.8 g/dL (14.0-18.0); Mean Corpuscular Hemoglobin 28.8 pg (27.0-31.0); Mean Corpuscular Volume 91.7 fL (78.0-98.0); Platelet Count 328 10x3/uL (130-400); Red Blood Cell (RBC) Count 4.10 mill/uL (4.70-6.10); White Blood Cell (WBC) Count 19.66 10x3/uL (4.8-10.8)
[2025-07-23 04:30] LABS: Anion Gap 12 mmol/L (10-20); BUN (Urea Nitrogen) Less than 4 mg/dL (8.9-20.6); Calc. Creatinine Clearance 201 mL/min (70-130); Calcium 8.8 mg/dL (7.8-10.44); Carbon Dioxide 28 mmol/L (22-29); Chloride 97 mmol/L (98-107); Glucose 29 mg/dL (70-105); Potassium 3.3 mmol/L (3.5-5.1); Sodium 134 mmol/L (136-145)
[2025-07-23 06:07] VITALS: BMI 15.1
[2025-07-23] MEDS: Potassium Chloride 40 MEQ in Premix 1 BAG IVPB SCH (08:48)
[2025-07-23] MEDS: Glucagon 1 MG/ML KIT IM PRN (10:28)
[2025-07-23] MEDS ORDERED: Scopolamine 1 mg/72 hour Patch TD PRN (12:16)
[2025-07-23 14:01] VITALS: TEMP 97.9
[2025-07-23 20:34] VITALS: BP 114/77
== END 2025-07-24 01:38 | disposition expired | DRG 637 ==
LOC: ERS 15:55 → T4-B 19:49 → OBSVTOIN 07-21 02:24 → IMCU/EMU 07-22 12:50 → MSONC 07-23 17:40
PROVIDERS: ADMIT Internal Medicine; ATTEND Internal Medicine
PROC: 5A09457 Assistance with Respiratory Ventilation, 24-96 Consecutive Hours, Continuous Positive Airway Pressure (ICD-10-PCS; 2025-07-20)
PROC: 4A033R1 Measurement of Arterial Saturation, Peripheral, Percutaneous Approach (ICD-10-PCS; principal; 2025-07-22)
PROC: 05HY33Z Insertion of Infusion Device into Upper Vein, Percutaneous Approach (ICD-10-PCS; 2025-07-22)
DX: E11.649 Type 2 diabetes mellitus with hypoglycemia without coma (principal); E43 Unspecified severe protein-calorie malnutrition; G93.41 Metabolic encephalopathy; J96.01 Acute respiratory failure with hypoxia; C79.51 Secondary malignant neoplasm of bone; C78.7 Secondary malignant neoplasm of liver and intrahepatic bile duct; C25.9 Malignant neoplasm of pancreas, unspecified; E87.1 Hypo-osmolality and hyponatremia; E87.20 Acidosis, unspecified; R64 Cachexia; Z68.1 Body mass index [BMI] 19.9 or less, adult; I10 Essential (primary) hypertension; E78.5 Hyperlipidemia, unspecified; Z88.5 Allergy status to narcotic agent; D64.9 Anemia, unspecified; F17.210 Nicotine dependence, cigarettes, uncomplicated; E87.6 Hypokalemia; Z51.5 Encounter for palliative care; Z66 Do not resuscitate; Z79.84 Long term (current) use of oral hypoglycemic drugs; Z98.890 Other specified postprocedural states; F15.10 Other stimulant abuse, uncomplicated
CPT/HCPCS: 36415; 36416; 36600; 70450; 71045; 71260; 74177; 80048; 80053; 80306; 80307; 81001; 82140; 82550; 82805; 83605; 83690; 83735; 84443; 84484; 85025; 87040; 93005; 94760; 96361; 96365; 96375; 96376; 97139; G0378; J1611; J1650; J2060; J2270; J2919; J3475; J3480; J7030; J7120; J7999; Q9967